=== PATIENT | female | born 1975 ===

== ENCOUNTER 2018-07-21 15:34 | Inpatient (IN) | payer OTHER ==
--- NOTE | 2018-07-21 16:42 | ED PDOC ---
HPI: General Adult Time Seen by Provider: 07/21/18 16:28 Chief Complaint (Nursing): Breast Problem Chief Complaint (Provider): Breast Problem History Per: Patient History/Exam Limitations: no limitations Onset/Duration Of Symptoms: Days (3x days) Current Symptoms Are (Timing): Still Present Severity: Moderate Additional Complaint(s): 43 year old female with no pertinent past medical history presents to the ED for an evaluation of swelling and pain of the lower portion of her right breast. Patient reports that she was told in the past that she had lymphoma. Patient denies having fevers, chills, and currently breast feeding. PMD: None provided. Past Medical History Reviewed: Historical Data, Nursing Documentation, Vital Signs Vital Signs: Last Vital Signs Temp 98.8 F 07/21/18 16:05 Pulse 89 07/21/18 16:05 Resp 18 07/21/18 16:05 BP 141/86 07/21/18 16:05 Pulse Ox 99 07/21/18 16:05 VINCENT Report Viewed: Yes - Medical History PMH: No Chronic Diseases - Family History Family History: States: No Known Family Hx - Social History Drugs: Denies - Allergies Allergies/Adverse Reactions: Allergies Allergy/AdvReac Type Severity Reaction Status Date / Time No Known Allergies Allergy Verified 07/21/18 16:07 Review of Systems ROS Statement: Except As Marked, All Systems Reviewed And Found Negative Constitutional: Negative for: Fever, Chills Cardiovascular: Positive for: Other (pain and swelling to lower portion of right breast.) Physical Exam - Reviewed Nursing Documentation Reviewed: Yes Vital Signs Reviewed: Yes - Physical Exam Appears: Positive for: Well, Non-toxic, No Acute Distress Head Exam: Positive for: ATRAUMATIC, NORMOCEPHALIC Skin: Positive for: Normal Color, Warm, Dry Cardiovascular/Chest: Positive for: Regular Rate, Rhythm, Other (5 cm region of induration with erythema and warmth noted on the surface of right breast, directly inferior to areola) Respiratory: Positive for: Normal Breath Sounds Neurologic/Psych: Positive for: Alert, Oriented (3x) - ECG O2 Sat by Pulse Oximetry: 99 (RA) Pulse Ox Interpretation: Normal Medical Decision Making Medical Decision Makin:23 Initial impression: 43 year old female with right breast swelling and pain. Initial plan: * US breast unilateral right * reevaluation Scribe Attestation: Documented byVita Aiken, acting as a scribe for Jeannie Melendez PA-C. Provider Scribe Attestation: All medical record entries made by the Scribe were at my direction and personally dictated by me. I have reviewed the chart and agree that the record accurately reflects my personal performance of the history, physical exam, medical decision making, and the department course for this patient. I have also personally directed, reviewed, and agree with the discharge instructions and disposition. Disposition - Disposition Forms: [employer] (Latvian)
[2018-07-21 20:02] LABS: BASO % 0.4 % (0.0-2.0); EOS # 0.2 K/uL (0.0-0.7); EOS % 1.6 % (0.0-4.0); HEMOGLOBIN 12.9 g/dL (12.0-16.0); LYMPH # 3.3 K/uL (1.0-4.3); LYMPH % 29.2 % (20.0-40.0); MEAN CELL VOLUME 91.4 fl (81.0-99.0); MEAN CORPUSCULAR HEMOGLOBIN 30.1 pg (27.0-31.0); MEAN PLATELET VOLUME 7.5 fl (7.2-11.7); MONO # 0.8 K/uL (0.0-0.8); MONO % 6.7 % (0.0-10.0); NEUT % 62.1 % (50.0-75.0); NRBC % 0.2 % (0.0-0.0); RBC 4.27 Mil/uL (3.80-5.20); RED CELL DISTRIBUTION WIDTH 12.5 % (11.5-14.5); WHITE BLOOD COUNT 11.3 K/uL (4.8-10.8)
[2018-07-21 20:07] LABS: PROTHROMBIN TIME 11.5 Seconds (9.8-13.1)
[2018-07-21 20:09] LABS: ALB/GLOB RATIO 1.1 (1.0-2.1); ALBUMIN 4.4 g/dL (3.5-5.0); ALT/SGPT 20 U/L (9-52); AST/SGOT 21 U/L (14-36); BLOOD UREA NITROGEN 12 mg/dl (7-17); CALCIUM 9.7 mg/dL (8.4-10.2); GFR NON-AFRICAN AMERICAN > 60; PARTIAL THROMBOPLASTIN TIME 32.1 Seconds (25.6-37.1)
--- NOTE | 2018-07-21 20:30 | CP.PCM.CON ---
History of Present Illness - History of Present Illness History of Present Illness: SURGERY NOTE FOR DR. CARD Reason: Right breast mass 43F presents with right breast mass and tenderness. Patient states it started two days and she has never had anything like this before. She states the mass is in the right breast at the 8 o'clock position, it is tender and slightly erythematous. She denies any drainage from the site. PMH: Denies PSH: *2 Social: denies tobacco, alcohol, illicit drug use Allergies: NKDA Past Patient History - Past Social History Smoking Status: Never Smoked - PSYCHIATRIC Hx Substance Use: No Meds Allergies/Adverse Reactions: Allergies Allergy/AdvReac Type Severity Reaction Status Date / Time No Known Allergies Allergy Verified 07/21/18 16:07 Physical Exam - Constitutional Appears: Non-toxic, No Acute Distress - Eye Exam Eye Exam: EOMI, Normal appearance - ENT Exam ENT Exam: Mucous Membranes Moist - Respiratory Exam Respiratory Exam: Clear to Auscultation Bilateral, NORMAL BREATHING PATTERN - Cardiovascular Exam Cardiovascular Exam: REGULAR RHYTHM, +S1, +S2 - GI/Abdominal Exam GI & Abdominal Exam: Soft. absent: Distended, Firm, Guarding, Rebound, Rigid, Tenderness - Neurological Exam Neurological exam: Alert, Oriented x3 - Psychiatric Exam Psychiatric exam: Normal Affect, Normal Mood - Skin Skin Exam: Dry, Intact, Normal Color, Warm - Additional Findings Additional findings: RIGHT BREAST - tender mass at 8oclock, erythematous, no drainage, approx 4cm Results - Vital Signs Recent Vital Signs: Last Vital Signs Temp 98.8 F 07/21/18 16:05 Pulse 89 07/21/18 16:05 Resp 18 07/21/18 16:05 BP 141/86 07/21/18 16:05 Pulse Ox 99 07/21/18 19:00 - Labs Result Diagrams: 07/21/18 19:22 07/21/18 19:22 Labs: Laboratory Results - last 24 hr 07/21/18 07/21/18 07/21/18 19:22 19:22 19:22 WBC 11.3 H RBC 4.27 Hgb 12.9 Hct 39.1 MCV 91.4 MCH 30.1 MCHC 33.0 RDW 12.5 Plt Count 329 MPV 7.5 Neut % (Auto) 62.1 Lymph % (Auto) 29.2 Moffat % (Auto) 6.7 Eos % (Auto) 1.6 Baso % (Auto) 0.4 Neut # (Auto) 7.0 Lymph # (Auto) 3.3 Moffat # (Auto) 0.8 Eos # (Auto) 0.2 Baso # (Auto) 0.0 PT 11.5 INR 1.0 APTT 32.1 Sodium 138 Potassium 3.6 Chloride 104 Carbon Dioxide 26 Anion Gap 12 BUN 12 Creatinine 0.6 L Est GFR ( Amer) > 60 Est GFR (Non-Af Amer) > 60 Random Glucose 93 Calcium 9.7 Total Bilirubin 0.5 AST 21 ALT 20 Alkaline Phosphatase 117 Total Protein 8.5 H Albumin 4.4 Globulin 4.1 H Albumin/Globulin Ratio 1.1 Assessment & Plan - Assessment and Plan (Free Text) Assessment: 43F with right breast abscess US: loculated fluid collection on right breast 8oclock Plan: - antibiotics Further recs discuss with Dr. Fantasma Gaviria, PGY3
--- NOTE | 2018-07-21 21:21 | CP.PCM.HP ---
History of Present Illness - History of Present Illness History of Present Illness: SURGERY NOTE FOR DR. CARD Reason: Right breast mass 43F presents with right breast mass and tenderness. Patient states it started two days and she has never had anything like this before. She states the mass is in the right breast at the 8 o'clock position, it is tender and slightly erythematous. She denies any drainage from the site. PMH: Denies PSH: denies Social: denies tobacco, alcohol, illicit drug use Allergies: NKDA Present on Admission - Present on Admission Any Indicators Present on Admission: Yes Past Patient History - Past Social History Smoking Status: Never Smoked - PSYCHIATRIC Hx Substance Use: No Meds Allergies/Adverse Reactions: Allergies Allergy/AdvReac Type Severity Reaction Status Date / Time No Known Allergies Allergy Verified 07/21/18 16:07 Physical Exam - Constitutional Appears: Non-toxic, No Acute Distress - Eye Exam Eye Exam: EOMI, PERRL - ENT Exam ENT Exam: Mucous Membranes Moist - Respiratory Exam Respiratory Exam: Clear to Auscultation Bilateral, NORMAL BREATHING PATTERN - Cardiovascular Exam Cardiovascular Exam: REGULAR RHYTHM, +S1, +S2 - GI/Abdominal Exam GI & Abdominal Exam: Soft. absent: Distended, Firm, Guarding, Normal Bowel Sounds, Rebound, Rigid, Tenderness - Extremities Exam Extremities exam: Negative for: pedal edema, tenderness - Neurological Exam Neurological exam: Alert, Oriented x3 - Psychiatric Exam Psychiatric exam: Normal Affect, Normal Mood - Skin Skin Exam: Dry, Intact, Normal Color, Warm - Additional Findings Additional findings: RIGHT BREAST - tender mass at 8oclock, erythematous, no drainage, approxx 4cm Results - Vital Signs Recent Vital Signs: Last Vital Signs Temp 98.8 F 07/21/18 16:05 Pulse 89 07/21/18 16:05 Resp 18 07/21/18 16:05 BP 141/86 07/21/18 16:05 Pulse Ox 99 07/21/18 19:00 - Labs Result Diagrams: 07/21/18 19:22 07/21/18 19:22 Labs: Laboratory Results - last 24 hr 07/21/18 07/21/18 07/21/18 19:22 19:22 19:22 WBC 11.3 H RBC 4.27 Hgb 12.9 Hct 39.1 MCV 91.4 MCH 30.1 MCHC 33.0 RDW 12.5 Plt Count 329 MPV 7.5 Neut % (Auto) 62.1 Lymph % (Auto) 29.2 Noble % (Auto) 6.7 Eos % (Auto) 1.6 Baso % (Auto) 0.4 Neut # (Auto) 7.0 Lymph # (Auto) 3.3 Noble # (Auto) 0.8 Eos # (Auto) 0.2 Baso # (Auto) 0.0 PT 11.5 INR 1.0 APTT 32.1 Sodium 138 Potassium 3.6 Chloride 104 Carbon Dioxide 26 Anion Gap 12 BUN 12 Creatinine 0.6 L Est GFR ( Amer) > 60 Est GFR (Non-Af Amer) > 60 Random Glucose 93 Calcium 9.7 Total Bilirubin 0.5 AST 21 ALT 20 Alkaline Phosphatase 117 Total Protein 8.5 H Albumin 4.4 Globulin 4.1 H Albumin/Globulin Ratio 1.1 Assessment & Plan - Assessment and Plan (Free Text) Assessment: 43F with right breast abscess US: loculated fluid collection on right breast 8oclock Plan: - antibiotics - Ancef - Monitor area of infection Further recs discuss with Dr. Fantasma Gaviria, PGY3
[2018-07-21] MEDS ORDERED: Sodium Chloride 0.9% 1,000 ML IV SCH (21:30)
[2018-07-21] MEDS: ceFAZolin 2 GM in Sodium Chloride 0.9% 100 ML IVPB SCH ×3 (22:37→22:50)
[2018-07-22] MEDS: ceFAZolin 2 GM in Sodium Chloride 0.9% 100 ML IVPB SCH ×3 (06:46→22:32)
[2018-07-22 07:16] LABS: BASO % 0.5 % (0.0-2.0); EOS # 0.2 K/uL (0.0-0.7); EOS % 2.2 % (0.0-4.0); LYMPH % 26.1 % (20.0-40.0); MEAN CELL VOLUME 89.7 fl (81.0-99.0); MEAN CORPUSCULAR HEMOGLOBIN 30.3 pg (27.0-31.0); MEAN CORPUSCULAR HGB CONC 33.7 g/dL (33.0-37.0); MEAN PLATELET VOLUME 7.4 fl (7.2-11.7); MONO # 0.5 K/uL (0.0-0.8); MONO % 6.6 % (0.0-10.0); NEUT # 4.9 K/uL (1.8-7.0); NEUT % 64.6 % (50.0-75.0); NRBC % 0.1 % (0.0-0.0); RBC 4.28 Mil/uL (3.80-5.20); RED CELL DISTRIBUTION WIDTH 12.5 % (11.5-14.5); WHITE BLOOD COUNT 7.6 K/uL (4.8-10.8)
[2018-07-22 07:51] LABS: BLOOD UREA NITROGEN 10 mg/dl (7-17); CALCIUM 8.8 mg/dL (8.4-10.2); GFR NON-AFRICAN AMERICAN > 60
--- NOTE | 2018-07-22 08:09 | CP.PCM.PN ---
Subjective - Date & Time of Evaluation Date of Evaluation: 07/22/18 Time of Evaluation: 06:10 - Subjective Subjective: Patient seen and examined. No acute events over night. Erythema from right breast vastly improved. Objective - Vital Signs/Intake and Output Vital Signs (last 24 hours): Temp Pulse Resp BP Pulse Ox 99.3 F 72 18 103/65 97 07/22/18 05:03 07/22/18 05:03 07/22/18 05:03 07/22/18 05:03 07/22/18 05:03 - Medications Medications: Current Medications Acetaminophen (Tylenol 325mg Tab) 650 mg PO Q6 PRN PRN Reason: Pain, moderate (4-7) Sodium Chloride (Sodium Chloride 0.9%) 1,000 mls @ 100 mls/hr IV .Q10H TSERING Stop: 07/22/18 21:17 Last Admin: 07/21/18 22:39 Dose: 100 mls/hr Cefazolin Sodium 2 gm/ Sodium (Chloride) 100 mls @ 100 mls/hr IVPB Q8H TSERING; Protocol Last Admin: 07/22/18 06:46 Dose: 100 mls/hr - Labs Labs: 07/22/18 05:30 07/22/18 05:30 PT 11.5 Seconds (9.8-13.1) 07/21/18 19:22 INR 1.0 07/21/18 19:22 APTT 32.1 Seconds (25.6-37.1) 07/21/18 19:22 - Constitutional Appears: No Acute Distress - Head Exam Head Exam: NORMOCEPHALIC - Eye Exam Eye Exam: EOMI, Normal appearance Pupil Exam: NORMAL ACCOMODATION - ENT Exam ENT Exam: Mucous Membranes Moist - Respiratory Exam Respiratory Exam: NORMAL BREATHING PATTERN - Cardiovascular Exam Cardiovascular Exam: +S1, +S2 - GI/Abdominal Exam GI & Abdominal Exam: Soft - Neurological Exam Neurological Exam: Alert, Awake, Oriented x3 - Skin Skin Exam: Erythema, Intact, Warm Additional comments: Slight erythema along 8'oclock region of right breast, however, it is markedly imrpoved Assessment and Plan - Assessment and Plan (Free Text) Assessment: 43F with Right breast cellulitis Plan: -C/w ABx -Likely d/c tomorrow -Will monitor breast -Further recs per Dr. Fantasma Tavares PGY3
[2018-07-23] MEDS: ceFAZolin 2 GM in Sodium Chloride 0.9% 100 ML IVPB SCH (06:10)
--- NOTE | 2018-07-23 08:52 | CP.PCM.DIS ---
Provider - Provider Date of Admission: 07/21/18 22:33 Attending physician: Rafa Meek MD Consults: 07/21/18 19:06 Surgery [General Surgery Consult] Stat Comment: R/O BREAST ABSCESS Consulting Provider: Rafa Meek Consulting Physician: Rafa Meek Reason for Consult: R/O BREAST ABSCESS Time Spent in preparation of Discharge (in minutes): 35 Diagnosis - Discharge Diagnosis (1) Cellulitis of right breast Status: Acute Priority: High Hospital Course - Lab Results Lab Results: Most Recent Lab Values WBC 7.6 K/uL (4.8-10.8) 07/22/18 05:30 RBC 4.28 Mil/uL (3.80-5.20) 07/22/18 05:30 Hgb 13.0 g/dL (12.0-16.0) 07/22/18 05:30 Hct 38.4 % (34.0-47.0) 07/22/18 05:30 MCV 89.7 fl (81.0-99.0) 07/22/18 05:30 MCH 30.3 pg (27.0-31.0) 07/22/18 05:30 MCHC 33.7 g/dL (33.0-37.0) 07/22/18 05:30 RDW 12.5 % (11.5-14.5) 07/22/18 05:30 Plt Count 308 K/uL (130-400) 07/22/18 05:30 MPV 7.4 fl (7.2-11.7) 07/22/18 05:30 Neut % (Auto) 64.6 % (50.0-75.0) 07/22/18 05:30 Lymph % (Auto) 26.1 % (20.0-40.0) 07/22/18 05:30 Eaton % (Auto) 6.6 % (0.0-10.0) 07/22/18 05:30 Eos % (Auto) 2.2 % (0.0-4.0) 07/22/18 05:30 Baso % (Auto) 0.5 % (0.0-2.0) 07/22/18 05:30 Neut # (Auto) 4.9 K/uL (1.8-7.0) 07/22/18 05:30 Lymph # (Auto) 2.0 K/uL (1.0-4.3) 07/22/18 05:30 Eaton # (Auto) 0.5 K/uL (0.0-0.8) 07/22/18 05:30 Eos # (Auto) 0.2 K/uL (0.0-0.7) 07/22/18 05:30 Baso # (Auto) 0.0 K/uL (0.0-0.2) 07/22/18 05:30 PT 11.5 Seconds (9.8-13.1) 07/21/18 19:22 INR 1.0 07/21/18 19:22 APTT 32.1 Seconds (25.6-37.1) 07/21/18 19:22 Sodium 138 mmol/l (132-148) 07/22/18 05:30 Potassium 3.8 MMOL/L (3.6-5.0) 07/22/18 05:30 Chloride 102 mmol/L (98-107) 07/22/18 05:30 Carbon Dioxide 24 mmol/L (22-30) 07/22/18 05:30 Anion Gap 16 (10-20) 07/22/18 05:30 BUN 10 mg/dl (7-17) 07/22/18 05:30 Creatinine 0.6 mg/dl (0.7-1.2) L 07/22/18 05:30 Est GFR ( Amer) > 60 07/22/18 05:30 Est GFR (Non-Af Amer) > 60 07/22/18 05:30 Random Glucose 112 mg/dL (65-105) H 07/22/18 05:30 Calcium 8.8 mg/dL (8.4-10.2) 07/22/18 05:30 Total Bilirubin 0.5 mg/dl (0.2-1.3) 07/21/18 19:22 AST 21 U/L (14-36) 07/21/18 19:22 ALT 20 U/L (9-52) 07/21/18 19:22 Alkaline Phosphatase 117 U/L (38-126) 07/21/18 19:22 Total Protein 8.5 G/DL (6.3-8.2) H 07/21/18 19:22 Albumin 4.4 g/dL (3.5-5.0) 07/21/18 19:22 Globulin 4.1 gm/dL (2.2-3.9) H 07/21/18 19:22 Albumin/Globulin Ratio 1.1 (1.0-2.1) 07/21/18 19:22 - Hospital Course Hospital Course: Pt is a 43F with PMH of HLD who presented to the ED with 2 days of pain, swelling, and redness to the outer right breast without any drainage or a clear area of fluctuance. No family or personal history of breast cancer or abscesses. Patient underwent an ultrasound, the preliminary report showed a heterogenous cystic structure, possible abscess, but patient was improving greatly with IV antibiotics, so decision was made to continue conservative management and monitor. Patient is completely asymptomatic on hospital day 2, wants to go home. Discussed all instructions in detailed and patient expressed understanding. Discharged patient to home in good health with 10 days of cephalexin and instructions to follow up in the health clinic [facility] and instructions to follow up with Dr. Meek as needed. For full hospital course, please refer to chart Discharge Exam - Head Exam Head Exam: ATRAUMATIC, NORMOCEPHALIC - Eye Exam Eye Exam: Normal appearance. absent: Conjunctival injection, Scleral icterus - ENT Exam ENT Exam: Mucous Membranes Moist, Normal Oropharynx - Respiratory Exam Respiratory Exam: NORMAL BREATHING PATTERN. absent: Accessory Muscle Use, Respiratory Distress - Cardiovascular Exam Cardiovascular Exam: RRR - GI/Abdominal Exam GI & Abdominal Exam: absent: Distended - Extremities Exam Extremities exam: pedal pulses present - Neurological Exam Neurological exam: Alert, Oriented x3 - Psychiatric Exam Psychiatric exam: Normal Affect, Normal Mood - Skin Skin Exam: Dry, Normal Color, Warm - Additional Findings Additional findings: right breast with no overlying erythema, induration, palpable masses, fluctuance, skin retraction, or expressible nipple discharge Discharge Plan - Discharge Medications Prescriptions: Cephalexin [Keflex] 500 mg PO Q6H 10 Days #40 capsule - Follow Up Plan Condition: GOOD Disposition: HOME/ ROUTINE Patient education suggested?: Yes Instructions: Mammography, How to Wash Your Hands Properly, Mastitis Additional Instructions: Follow up with Dr. Meek in his office if you have any further symptoms or concerns Follow up in the clinic with your scheduled appointment in August, discuss the possibility of a mammogram at that time Take all of the antibiotics as directed. If you have any issues, call your doctor or Dr. Meek' office Take tylenol or advil for pain Return to ER or call Dr. Meek' office for any fever >100.4 after taking tylenol, any new or worsening redness or pain in the breast, or any other concerning symptoms Referrals: Rafa Meek MD [Staff Provider] -
[2018-07-23 09:40] VITALS: BP 116/72; PULSE 69; RESP 20; TEMP 98.7; O2SAT 99
--- NOTE | 2018-07-24 14:01 | US ---
Date of service: 07/21/2018 PROCEDURE: Ultrasound examination right breast HISTORY: r/o breast abscess inferior to areola COMPARISON: 05/05/2007 TECHNIQUE: Ultrasound examination was performed in the lower outer right breast in the region of erythema, pain and swelling. FINDINGS: In 8 o'clock axis, 1 cm from the nipple, there is and irregular elongated collection of fluid which appears to be between fat lobules rather than a discrete drainable collection. This extends over a length of approximately 2.7 cm. There is no drainable collection identified In the 9 o'clock axis, 1 cm from the nipple, there is a complex cyst with an internal septation and some low-level echoes. Cannot rule out abscess in this location. However, there is no significant associated vascularity. This measures 7 x 8 x 11 mm. No other solid or cystic mass is identified in the region evaluated. There is no significant right axillary lymphadenopathy IMPRESSION: 11 mm complex cyst/cystic collection in the 9 o'clock axis of the right breast, 1 cm from the nipple. Possible abscess though it lacks significant associated vascularity. There is a lobulated collection of fluid, likely between fat lobules, in approximately the 8-9 o'clock axis of the right breast. This does not have a configuration consistent with abscess. Follow-up is advised. The preliminary findings for this examination were reported by [facility] at 8:33 p.m. on 07/21/2018. There is concurrence of this report with the preliminary findings.
== END 2018-07-23 10:30 | disposition home or self-care (01) | DRG 385 ==
LOC: H.ER 15:34 → H.ERHOLD 22:33 → H.PEDS 23:43
PROVIDERS: ADMIT Specialist; ATTEND Specialist
DX: N61.1 Abscess of the breast and nipple (principal); E78.5 Hyperlipidemia, unspecified; N63.13 Unspecified lump in the right breast, lower outer quadrant